=== PATIENT | male | born 1985 | race Hispanic/Latino ===

== ENCOUNTER 2024-04-02 17:40 | Emergency (ER) | payer SELFPAY ==
--- NOTE | ~2024-04-02 | XR_ITS ---
HISTORY: pain COMPARISON: None TECHNIQUE: 3 views of the right knee were performed. Examination is somewhat limited by positioning. FINDINGS: No acute or subacute fracture, bony erosion, lytic or sclerotic lesion. Joint spaces are narrowed (specifically, the medial tibiofemoral joint space) and evaluation of the a lignment is suboptimal (secondary to positioning). For example, lateral translation of the patella is suspected, however no suprapatellar joint effusion is appreciated, and the infrapatellar joint space is clear. Normal mineralization. IMPRESSION: No acute or subacute fracture. Examination is somewhat limited by positioning. No suprapatellar or infrapatellar joint effusion is present. If patient is clinically able, further evaluation with nonemergent noncontrast enhanced MRI would pro vide additional information. Reviewed, dictated and finalized at location A. IMPRESSION: No acute or subacute fracture. Examination is somewhat limited by positioning. No suprapatellar or infrapatellar joint effusion is present. If patient is clinically able, further evaluation with nonemergent noncontrast enhanced MRI would provide additional information.
[2024-04-02 17:52] VITALS: BP 120/78; PULSE 82; RESP 18; TEMP 36.6; O2SAT 100
[2024-04-02] MEDS: oxyCODONE/ACETAMINOPHEN (*CRX) 5-325 MG TABLET 1 TABLET PO ×2 (20:34→21:55)
[2024-04-02] MEDS: KETOROLAC 30 MG/ML VIAL (*BKC) IM (20:35)
--- NOTE | 2024-04-02 21:05 | ED.LOWEXIN ---
HPI - Extremity Injury (Lower) General Chief Complaint: Extremity Injury, Lower Stated Complaint: R knee pain Time Seen by Provider: 04/02/24 19:31 Source: patient Mode of arrival: ambulatory Limitations: no limitations History of Present Illness HPI Narrative: This is a 38-year-old male, with prior history of ACL tear in the right knee, presents emergency department complaining of right knee pain beginning this afternoon. The patient states he was [place] [employer], sitting in a chair, when he states he ?moved my knee wrong? and felt a pop with severe pain. He states he has difficulty straightening the knee but has no other complaints at this time. Related Data Allergies Allergy/AdvReac Type Severity Reaction Status Date / Time No Known Allergies Allergy Unverified 04/02/24 20:11 Review of Systems Review of Systems: All systems reviewed & are unremarkable except as noted in HPI and below PMFSH Past Medical History Medical History (Updated 04/02/24 @ 21:11 by Rickey Villalobos MD) Right ACL tear Surgical History Surgical History (Updated 04/02/24 @ 21:11 by Rickey Villalobos MD) History of repair of ACL Social History Social History (Updated 04/02/24 @ 21:11 by Rickey Villalobos MD) Smoking status: Never smoker Alcohol intake: never Substance use: never Exam Narrative: GENERAL: Well-developed, well-nourished, and in no acute distress. HEAD: Normocephalic, atraumatic. EYES: PERRLA and EOMI. CHEST: Clear to auscultation. No respiratory distress. No wheezes rales or rhonchi HEART: Regular rate and rhythm. No murmur heard. Normal peripheral pulses. EXTREMITIES: Mild right knee effusion compared to the left. Tender to palpation at the medial, proximal aspect of the right tibia. Range of motion of the right knee limited on extension due to pain. There is no noted ACL, PCL or collateral ligament laxity. Otherwise normal range of motion of all extremities. No edema. SKIN: Warm, dry, no rash. NEURO: Alert and oriented x3. No focal deficit. Moving all 4 limbs spontaneously PSYCH: Normal mood and affect. Course Course Emergency Course: 21:05 - Range of motion of the right knee improved with pain medications. His exam is not concerning for ACL, PCL or collateral ligament injury. I suspect possible meniscus injury. Will discharge with pain medications and orthopedic surgery referral. I discussed the findings and recommendations with the patient. Discussed return and emergency precautions including signs/symptoms of septic arthritis and neurovascular compromise. The patient voiced understanding and agreement with the plan. All questions answered to his satisfaction. Vital Signs Vital signs: Vital Signs Temperature 98 F 04/02/24 17:52 Pulse Rate 82 04/02/24 17:52 Respiratory Rate 18 04/02/24 17:52 Blood Pressure 120/78 04/02/24 17:52 Pulse Oximetry 100 04/02/24 17:52 Temperature 98 F 04/02/24 17:52 Pulse Rate 82 04/02/24 17:52 Respiratory Rate 18 04/02/24 17:52 Blood Pressure 120/78 04/02/24 17:52 Pulse Oximetry 100 04/02/24 17:52 MDM - Extremity Injury (Lower) MDM Narrative Medical decision making narrative: Plan: Imaging, pain control, reassess Differential Diagnosis Differential diagnosis: Likely other (Knee fracture, ligament injury, meniscus tear, other) Discharge Plan Discharge Clinical Impression: Acute pain of right knee, Knee effusion, right Patient Disposition: Home, Self-Care Condition: Stable Instructions: Antibiotic Form, Knee Pain (ED) Additional Instructions: You were seen in the emergency department. X-ray of the knee was not concerning for fracture or dislocation. I recommend pain medications, rest, icing, compression elevation following up with a primary care doctor and orthopedic surgeon. If you develop fevers with rapidly spreading redness in severe pain, the foot/leg appears blue/cold, or if you have other emerg
[2024-04-02 21:30] VITALS: BP 128/78; PULSE 88; RESP 20; TEMP 36.3; O2SAT 100
== END 2024-04-02 22:01 | disposition home or self-care (01) ==
LOC: ANHED 22:44
PROVIDERS: Emergency Provider Preventive Medicine Aerospace Medicine
DX: M25.561 Pain in right knee (principal); M25.461 Effusion, right knee
CPT/HCPCS: 73562; 96372; 99283; A9270; J1885

== ENCOUNTER 2024-04-16 08:23 | Outpatient (CLI) | payer OTHER, SELFPAY ==
--- NOTE | ~2024-04-16 | MR_ITS ---
MRI right knee without contrast Ordering provider: Jason Jarrett MD History: . M25.561 - Pain in right knee . Comparison: None. FINDINGS: QUADRICEPS, PATELLAR TENDONS AND CRUCIATE LIGAMENTS: The quadriceps and patellar tendons are normal. Redundant course of the ACL which raises the possibility of a partial versus complete tear of the ant erior cruciate ligament. This also may be postoperative change. Arthroscopy evaluation advised. The posterior cruciate ligament is intact. MENISCI: T2 hyperintense signal areas seen in the midportion of the joint space which may indicate b ucket handle tear. T2 bright signal is seen in the posterior horn of the medial meniscus suggestive o f a tear. Bright signal also seen in the anterior horn of the medial meniscus suggestive of a tear. The lateral meniscus is normal. COLLATERAL LIGAMENTS: Fluid seen around the medial collateral ligament which may indicate partial tea r. PATELLA: Normal position without tilt or subluxation. The medial and lateral patellar retinacula and medial patellofemoral ligament are intact. JOINT SPACE/ARTICULAR CARTILAGE: The articular cartilage of the knee is normal including the scorekeeper ior femoral condyles. Minimal joint effusion. BONES: T2 bright signal seen in the area of the tibial proximal metaphysis anteriorly which may be po stoperative for ACL reconstruction clinical correlation advised. The other differential include contu albertina. Otherwise, Normal marrow signal. SUPERFICIAL AND DEEP SOFT TISSUE: No popliteal cyst. No bursitis. No muscle strain. Otherwise, cuong l. IMPRESSION: Highly suggestive bucket-handle tear in the medial meniscus. Highly suggestive tear in the anterior and posterior horns of the medial meniscus. Arthroscopic evalu ation is advised. Postoperative changes in the anterior tibia for ACL reconstruction with redundant ACL. This may be du e to postoperative change but tear at the insertion in the femur cannot be excluded. Highly suggestive of partial tear in the medial collateral ligament. Reviewed, dictated and finalized at location A. IMPRESSION: Highly suggestive bucket-handle tear in the medial meniscus. Highly suggestive tear in the anterior and posterior horns of the medial menisc us. Arthroscopic evaluation is advised. Postoperative changes in the anterior tibia for ACL reconstruction with redunda nt ACL. This may be due to postoperative change but tear at the insertion in th e femur cannot be excluded. Highly suggestive of partial tear in the medial collateral ligament.
== END 2024-04-16 08:24 | disposition home or self-care (01) ==
PROVIDERS: PCP Orthopaedic Surgery; Visit Provider Orthopaedic Surgery
DX: M25.561 Pain in right knee (principal); R93.6 Abnormal findings on diagnostic imaging of limbs
CPT/HCPCS: 73721

== ENCOUNTER 2024-12-01 15:36 | Outpatient (CLI) | payer OTHER, SELFPAY ==
--- NOTE | ~2024-12-01 | MR_ITS ---
EXAMINATION: MR knee RT wo con DATE: 12/01/2024 16:17 INDICATION: Injury of right knee TECHNIQUE: Magnetic resonance imaging (MRI) of the right knee was performed without intravenous contr ast. Sequences included axial PD-weighted FS FSE, coronal PD-weighted FSE and PD-weighted FS FSE, sag ittal PD-weighted FSE, and sagittal T2-weighted FS FSE. COMPARISON: MR right knee 04/16/2024: X-ray right knee 04/02/2024. FINDINGS: Medial compartment: Complex tear of the posterior horn with extension to the body of the medial meniscus. Oblique tear of the junction of the anterior horn and body medial meniscus Mild diffuse cartilage thinning and osteo phytosis. Multifocal cartilage signal abnormalities without focal defect. Lateral compartment: Focal oblique tear in the body of the lateral meniscus. Mild diffuse cartilage thinning and osteophyt osis. Multifocal cartilage signal abnormalities without focal defect. Patellofemoral compartment: Partial-thickness cartilage signal abnormality. No focal defect. Retinacula intact. Ligaments and tendons: Status post ACL graft revision. The graft material appears discontiguous near its insertion and there is mild diffuse high signal within the fibers of the graft. The PCL is intact. Mild low signal thick ening of the MCL as can be seen with chronic partial tear. The LCL is intact. Postsurgical defect in the patellar tendon. Abnormal signal deep to the pes anserine tendons. Fluid: Small volume joint fluid. Osseous/other: Irregular heterogeneous signal material along the posterior aspect of the patellar fat pad and in the anterior portion of the intercondylar notch contiguous with the ACL graft material. Areas of high si gnal and low signal within the intrapatellar fat pad. Old ACL graft tracts in the femur and tibia. Mo derate marrow edema in the tibial spine. IMPRESSION: Status post ACL graft revision, with findings concerning for at least partial tear of the graft and a rthrofibrosis. Complex tear of the posterior horn and body, medial meniscus, which may represent a flap tear with th e flap reduced into normal anatomic location or post surgical changes if prior meniscal repair has be en attempted. Also consider re-injury if there has been interval trauma. Focal tear of the body lateral meniscus. Marrow edema in the tibial spine. Pes anserine bursitis. Small joint effusion. Reviewed, dictated and finalized at location K. IMPRESSION: Status post ACL graft revision, with findings concerning for at least partial t ear of the graft and arthrofibrosis. Complex tear of the posterior horn and body, medial meniscus, which may represe nt a flap tear with the flap reduced into normal anatomic location or post surg ical changes if prior meniscal repair has been attempted. Also consider re-inju ry if there has been interval trauma. Focal tear of the body lateral meniscus. Marrow edema in the tibial spine. Pes anserine bursitis. Small joint effusion.
== END 2024-12-01 15:37 | disposition home or self-care (01) ==
LOC: MICIMG 15:40
PROVIDERS: PCP Orthopaedic Surgery Sports Medicine; Visit Provider Orthopaedic Surgery Sports Medicine
DX: S83.231A Complex tear of medial meniscus, current injury, right knee, initial encounter (principal); S83.281A Other tear of lateral meniscus, current injury, right knee, initial encounter; M71.561 Other bursitis, not elsewhere classified, right knee; M25.461 Effusion, right knee; Z98.890 Other specified postprocedural states; X58.XXXA Exposure to other specified factors, initial encounter
CPT/HCPCS: 73721